=== PATIENT | female | born 1980 | race Caucasian/White ===

== ENCOUNTER 2022-06-09 12:36 | Emergency (ER) | payer OTHER, SELFPAY ==
[2022-06-09 12:49] VITALS: BP 104/62; RESP 16; O2SAT 100
--- NOTE | 2022-06-09 13:13 | ED.EAR ---
HPI - Ear Problem General Chief complaint: Ear Stated complaint: Right Ear Irritation Time Seen by Provider: 06/09/22 13:13 Source: patient Mode of arrival: ambulatory Limitations: no limitations History of Present Illness HPI Narrative: 41-year-old female presents with complaint of right ear pain for approximately 1 Week. States that she saw ENT at [place] and was given a steroid ear drop. Called yesterday and said the pain was worse and was given another steroid ear drop. 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 States that she has never had problems with her ears. Afebrile. All systems reviewed and negative except as noted above. Related Data Home Medications Medication Instructions Recorded Confirmed levothyroxine 125 mcg tablet 125 mcg PO DAILY 04/21/22 (Synthroid) ofloxacin 0.3 % ear drops drp 06/09/22 prednisone 5 mg tablet 5 mg PO TID 06/09/22 06/09/22 testosterone 06/09/22 Allergies Allergy/AdvReac Type Severity Reaction Status Date / Time acetaminophen [From [place]] AdvReac Severe Dizziness Verified 06/09/22 12:44 albuterol AdvReac Severe Other Verified 06/09/22 12:44 amoxicillin [From Augmentin] AdvReac Severe Diarrhea Verified 06/09/22 12:44 clavulanic acid AdvReac Severe Diarrhea Verified 06/09/22 12:44 [From Augmentin] doxycycline AdvReac Severe Irritable Verified 06/09/22 12:44 estradiol AdvReac Severe Unknown Verified 06/09/22 12:44 hydrocodone [From [place]] AdvReac Severe Dizziness Verified 06/09/22 12:44 latex AdvReac Severe Unknown Verified 06/09/22 12:44 morphine AdvReac Severe Vomiting Verified 06/09/22 12:44 penicillin G AdvReac Severe Unknown Verified 06/09/22 12:44 trazodone AdvReac Severe Nausea and Verified 04/21/22 10:10 Vomiting triamcinolone AdvReac Severe Hallucinati Verified 04/21/22 10:10 ng clorahexadine AdvReac Severe Rash Uncoded 04/21/22 10:10 STERI STRIPS AdvReac Severe Unknown Uncoded 04/20/22 15:01 Review of Systems Review of Systems: CONSTITUTIONAL: Denies fever, chills, or sweats. EYES: Denies visual changes, redness, or discharge. ENT: Denies rhinorrhea, congestion, sore throat . Reports right ear pain. CARDIOVASCULAR: Denies chest pain, palpitations, or edema. RESPIRATORY: Denies cough or dyspnea. GASTROINTESTINAL: Denies abdominal pain, nausea, vomiting, or diarrhea. GENITOURINARY: Denies dysuria or hematuria. SKIN: Denies rash or itching. MUSCULOSKELETAL: Denies back pain, joint pain, or myalgia. NEUROLOGIC: Denies headache, numbness, or weakness. PSYCHIATRIC: Denies anxiety or depression. All other systems reviewed are negative, except as documented in HPI. [facility] Social History Social History (Updated 04/21/22 @ 10:10 by Sania Gore) Smoking status: Unknown if ever smoked Alcohol intake: current Alcohol use details: occasional Substance use: never Substance use type: does not use Gender identity (if verbalized by the patient): Female Comments At time of signature, agree with nursing past medical, surgical, social and family history. There is no relevant family history pertinent to the presenting complaint. Exam Narrative: GENERAL: This is a well-nourished, well-developed patient, in no apparent distress. HEAD: normocephalic, atraumatic. EYES: PERRL. Sclera clear/white. Vision is grossly intact. EARS: External ears normal, auditory canals clear and without drainage . Yellow fluid to right TM. NOSE: External nose normal with no obvious nasal discharge, nares without redness, no rhinorrhea. THROAT: Mucous membranes moist, posterior pharynx clear. NECK: Neck supple, non-tender without lymphadenopathy, masses or thyromegaly. CARDIOVASCULAR: Regular rate and rhythm without murmurs, gallops, or rubs. RESPIRATORY: Clear to auscultation. Breath sounds equal bilaterally. No wheezes, rales, or rhonchi. SKIN: warm, Dry, intact with no suspicious lesions or rash, good texture and turgor. NEURO: awake, alert, and orie
== END 2022-06-09 13:30 | disposition home or self-care (01) ==
PROVIDERS: Emergency Provider Nurse Practitioner Family; PCP Internal Medicine
DX: H65.01 Acute serous otitis media, right ear (principal); E03.9 Hypothyroidism, unspecified
CPT/HCPCS: 99213; G0463